=== PATIENT | female | born 1995 | race Caucasian/White ===

== ENCOUNTER 2020-04-12 12:40 | Emergency (ER) | payer BC ==
[~2020-04-12] VITALS: Ht 175.3 cm; Wt 61.2 kg
[2020-04-12 12:53] VITALS: BP 120/81
--- NOTE | 2020-04-12 13:13 | NUR ---
Patient discharged to home in stable condition. Written and verbal after care instructions given. Patient verbalizes understanding of instruction.
== END 2020-04-12 13:13 | disposition home or self-care (01) ==
LOC: ER 12:54
DX: T63.441A Toxic effect of venom of bees, accidental (unintentional), initial encounter (principal); M79.641 Pain in right hand; Y92.89 Other specified places as the place of occurrence of the external cause